=== PATIENT | male | born 1980 ===

== ENCOUNTER 2016-10-03 12:36 | Emergency (ER) | payer BC, OTHER ==
--- NOTE | 2016-10-03 12:42 | UC ---
Respiratory Complaint HPI - HPI Summary HPI Summary: 36 year old male presents with complains of cough, sinus congestion and fever. - History of Current Complaint Stated Complaint: DRY COUGH,FATIGUE,HEADACHE Time Seen by Provider: 10/03/16 12:41 - Allergies/Home Medications Allergies/Adverse Reactions: Allergies Allergy/AdvReac Type Severity Reaction Status Date / Time No Known Allergies Allergy Verified 10/03/16 12:52 Review of Systems Constitutional: Fever, Chills, Fatigue Skin: Negative Eyes: Negative ENT: Sore Throat, Nasal Discharge, Sinus Congestion, Sinus Pain/Tenderness Respiratory: Cough Cardiovascular: Negative Gastrointestinal: Negative Genitourinary: Negative Motor: Negative Neurovascular: Negative Musculoskeletal: Negative Neurological: Negative Psychological: Negative All Other Systems Reviewed And Are Negative: Yes Physical Exam Triage Information Reviewed: Yes Eye Exam: Normal ENT: Positive: Pharyngeal erythema, Nasal congestion, Tonsillar swelling Dental Exam: Normal Neck exam: Normal Neck: Positive: 1 Respiratory: Positive: Wheezing, Expiration Cardiovascular Exam: Normal Abdominal Exam: Normal Musculoskeletal Exam: Normal Neurological Exam: Normal Psychological Exam: Normal Skin Exam: Normal Respiratory Course/Dx - Differential Dx/Diagnosis Provider Diagnoses: cough. fever. chills Discharge - Discharge Plan Condition: Stable Disposition: HOME Prescriptions: Azithromyxin GURPREET (NF) [Z-Gurpreet (Zithromax) 250 mg tabs #6] 2 tab PO .TODAY, THEN 1 DAILY #6 tab LoraTADine TAB(NF) [Claritin 10 MG TAB(NF)] 10 mg PO DAILY #30 tab Methylprednisolone [Medrol Dosepak 4 MG*] 4 mg PO .SEE GURPREET INSTRUCTION #21 tab guaiFENesin/CODIEN 100MG-10MG* [Robitussin AC 100Mg-10Mg*] 5 ml PO Q6H PRN #120 ml MDD 20 ml PRN Reason: Cough Patient Education Materials: Fever in Adults (ED), Cold Symptoms (ED) Referrals: Sandra Liu MD [Primary Care Provider] - If Needed
[2016-10-03 12:53] VITALS: BP 122/68
== END 2016-10-03 13:41 | disposition home or self-care (01) ==
LOC: UCCORT 12:36
DX: R05 Cough (principal); R50.9 Fever, unspecified
CPT/HCPCS: 87502; 87651; 99202; G0463